=== PATIENT | female | born 2005 | race Two or more races ===

== ENCOUNTER 2024-07-26 09:46 | Emergency (ER) | payer MEDICAID, SELFPAY ==
[2024-07-26 09:59] VITALS: BP 116/81; PULSE 92; RESP 19; TEMP 36.7; O2SAT 98; BMI 25.9
--- NOTE | 2024-07-26 10:01 | XR_ITS ---
Examination: Abdomen sonogram, Limited Date and time of exam: July 26, 2024 1020 hours INDICATIONS: Onset right upper abdominal pain today Technique: Real-time revlees scale transabdominal sonographic images of the upper abdomen obtained. Findings: 15 mm stone in the gallbladder neck 10 mm stone in the fundus Gallbladder wall 0.3 cm Common bile duct enlarged 0.7 cm although no definite stones Pancreatic head 2.3 cm Liver 11.7 cm Normal study Patent IVC IMPRESSION: Cholelithiasis, negative for cholecystitis Abnormal enlargement common bile duct 0.7 cm, consider MRCP follow-up to exclude common bile duct stones
--- NOTE | 2024-07-26 10:02 | EKG_ITS ---
[facility] Test Date: 2024-07-26 Pat Name: DORIS ABERNATHY Department: Room: - Gender: Female Clerk Operator: : [id number] Requested By: Maciel Maldonado Order Number: [id number] Reading MD: Maciel Maldonado Measurements Intervals [place] Rate: 86 P: 53 NV: 108 QRS: 49 QRSD: 87 T: 28 QT: 338 QTc: 404 Interpretive Statements SINUS RHYTHM WITH SHORT NV INTERVAL INDETERMINATE AXIS No previous ECG available for comparison /[id number]/[email or web address]/[id number].pdf
--- NOTE | 2024-07-26 10:02 | PD.EDRME ---
Rapid Medical Screening Exam RME Arrival date/time: 07/26/24 09:46 Chief Complaint: Abdominal Pain Time Seen by Provider: 07/26/24 09:48 Vital signs: Vital Signs Temperature 98.1 F 07/26/24 09:59 Pulse Rate 92 07/26/24 09:59 Respiratory Rate 19 07/26/24 09:59 Blood Pressure 116/81 07/26/24 09:59 Pulse Oximetry (%) 98 07/26/24 09:59 Oxygen Delivery Method Room Air 07/26/24 09:59 RME Narrative: RUQ pain radiating to back with nausea since 0200
[2024-07-26 10:59] LABS: Basophils % (Auto) 0 % (0-2.5); Eosinophils # (Auto) 0.1 Thou/mm3 (0.0-0.5); Eosinophils % (Auto) 1 % (0-10); Hematocrit 40.9 % (36.0-46.0); Hemoglobin 13.5 g/dL (12.0-16.0); Immature Granulocytes % (Auto) 0 % (0-0); Immature Granulocytes Auto 0.01 Thou/mm3 (0.00-0.00); Lymphocytes % (Auto) 22 % (10-50); Mean Corpuscular Hemoglobin 26.6 pg (25.0-35.0); Mean Corpuscular Volume 81 fL (80-100); Monocytes # (Auto) 0.4 Thou/mm3 (0.0-0.8); Monocytes % (Auto) 5 % (0-12); Neutrophils # (Auto) 6.4 Thou/mm3 (1.8-7.7); Neutrophils % (Auto) 71 % (37-80); Nucleated Red Blood Cell % 0 /100 WBC (0); Platelet Count 249 Thou/mm3 (140-440); RDW Standard Deviation 37.9 fL (36.4-46.3); Red Blood Count 5.07 Miln/mm3 (4.00-5.20); White Blood Count 9.1 Thou/mm3 (4.5-11.0)
[2024-07-26] MEDS: KETOROLAC INJ 60 MG/2 ML VIAL 30 MG IM (11:13)
[2024-07-26] MEDS: ONDANSETRON ODT 4 MG TABRAP PO (11:13)
[2024-07-26 11:17] LABS: Alanine Aminotransferase 20 U/L (10-49); Alkaline Phosphatase 112 U/L (46-116); Anion Gap 6 (7-16); Aspartate Amino Transferase 17 U/L (0-34); BUN/Creatinine Ratio 10 Ratio (12-20); Bilirubin,Total 0.4 mg/dL (0.3-1.2); Blood Urea Nitrogen 7 mg/dL (9-23); Calcium 9.4 mg/dL (8.3-10.6); Calcium (Corrected) 9.4 mg/dL (8.5-10.1); Carbon Dioxide 23.5 mMol/L (20.0-31.0); Chloride 106 mMol/L (98-107); Creatinine (Component) 0.7 mg/dL (0.6-1.3); Estimated Creatinine Clearance 113.9 mL/min (>60); Globulin 2.5 gm/dL (2.3-3.5); Glucose 89 mg/dL (74-106); Lipase 35 U/L (12-53); Osmolality,Calculated 267 (275-295); Sodium 135 mMol/L (136-145); Total Protein 7.5 gm/dL (5.7-8.2); Troponin I < 0.002 ng/mL (0.0-0.045); eGFR > 60 See Note
[2024-07-26 11:29] LABS: Collection Type, Urine Clean Catch
[2024-07-26 11:32] LABS: HCG Qualitative,Urine Negative
[2024-07-26 11:33] LABS: Bilirubin,Urine Negative (Negative); Blood,Urine 2+ (Negative); Clarity,Urine Clear (Clear/Hazy); Color,Urine Lt-Yellow (Lt Yel-Yel); Glucose, Urine Negative (Negative); Ketones,Urine Negative (Negative); Leukocyte Esterase,Urine Negative (Negative); Nitrite,Urine Negative (Negative); Protein,Urine Negative (Neg - Trace); RBC,Urine 3 /hpf (0-3); Specific Gravity,Urine 1.024 (1.001-1.035); Squamous Epithelial Cell,Urine 6 /hpf (0-5); Urobilinogen,Urine Negative mg/dL (0.0-1.0); WBC,Urine 1 /hpf (0-5)
--- NOTE | 2024-07-26 12:27 | PD.EDABDPN ---
ED Abdominal Pain RME/HPI General Chief Complaint: Abdominal Pain Stated complaint: right upper ab pain started 2 am today Time seen by provider: 07/26/24 09:48 Arrival date/time: 07/26/24 09:46 RME / HPI RME / HPI narrative: 18-year-old female patient with no significant medical history, came in for evaluation regarding right upper quadrant pain. Onset of symptoms since 2 AM this morning, as sudden onset of right upper quadrant pain, patient woke up with it, she Is crampy, severity moderate. Patient denies any fever denies any vomiting denies any other complaints no medication was taken prior to arrival. Related Data Home Medications ?Medication ?Instructions ?Recorded ?Confirmed ferrous sulfate 325 mg (65 mg 325 mg PO BID 11/22/21 11/22/21 iron) tablet Previous Rx's ?Medication ?Instructions ?Recorded ondansetron HCl 4 mg tablet 4 mg PO QDAY #10 tabs 11/22/21 labetalol 100 mg tablet 400 mg (4 x 100 mg) PO BID 30 days 11/26/21 #240 tabs nifedipine 30 mg tablet,extended 60 mg (2 x 30 mg) PO QDAY 30 days 11/27/21 release 24 hr #60 tabs famotidine 40 mg tablet (Pepcid) 40 mg PO QDAY #30 tabs 05/23/23 dicyclomine 20 mg tablet 20 mg PO TID PRN abdominal pain 07/26/24 #30 tabs Allergies Allergy/AdvReac Type Severity Reaction Status Date / Time No Known Allergies Allergy Verified 07/26/24 09:47 Review of Systems Review of Systems Narrative Review of Systems: Review of system reviewed and within normal limits except mentioned in HPI ED Exam Narrative Physical exam: VITAL SIGNS: Reviewed. GENERAL APPEARANCE: Alert and interactive, follows commands, no acute distress, HEAD AND FACE: Non-traumatic. ENT: PERRL, pink conjunctivitis, eyelid no trauma, Mucous membrane moist. NECK: Supple, nontender, no nuchal rigidity. CHEST: No tenderness, no crepitus, no paradoxical movement, no retractions. LUNGS: Clear, well ventilated, symmetric, no rales, no wheezing, no ronchi, no stridor, good breath sounds bilaterally. HEART: Regular rate, regular rhythm, no murmur, no gallops. ABDOMEN: Soft, positive bowel sounds, nondistended, no guarding, right upper quadrant tenderness, no rebound, no masses, RECTAL: Deferred. GENITAL: Deferred. NEUROLOGICAL: Gross motor function intact sensory function intact, Appropriate for age. MUSCULOSKELETAL: low back nontender, full range of motion. EXTREMITIES: Nontender, full range of motion. SKIN: Color pink, dry, no rash, no lacerations, no abrasions, no contusions. LYMPHATICS: Deferred. Course Quality Measures none Orders Category Date Time Status EKG (ED ONLY) *Do not use* NOW Care 07/26/24 10:02 Completed EKG (ED Only) Stat Exams 07/26/24 10:02 Draft US gall bladder Stat Exams 07/26/24 10:01 Completed CBC Stat Lab 07/26/24 10:42 Completed CMP [Comprehensive Metabolic Panel] Stat Lab 07/26/24 10:42 Completed HCG Qualitative,Urine Stat Lab 07/26/24 11:20 Completed Lipase Stat Lab 07/26/24 10:42 Completed Troponin I Stat Lab 07/26/24 10:42 Completed UA [Urinalysis] Stat Lab 07/26/24 11:20 Completed Ketorolac Inj [Toradol Inj] Med 07/26/24 10:01 Discontinued 30 mg IM X1 ONE Ondansetron Odt [Zofran Odt] Med 07/26/24 10:01 Discontinued 4 mg PO X1 ONE Vital Signs Vital signs: Vital Signs Temperature 98.1 F 07/26/24 09:59 Pulse Rate 92 07/26/24 09:59 Respiratory Rate 19 07/26/24 09:59 Blood Pressure 116/81 07/26/24 09:59 Pulse Oximetry (%) 98 07/26/24 09:59 Oxygen Delivery Method Room Air 07/26/24 09:59 Abdominal Pain MDM MDM Narrative MDM Narrative:: 18-year-old female patient with no significant medical history, came in for evaluation regarding right upper quadrant pain. Onset of symptoms since 2 AM this morning, as sudden onset of right upper quadrant pain, patient woke up with it, she Is crampy, severity moderate. Patient denies any fever denies any vomiting denies any other complaints no medication was taken prior to arrival. Laboratory workup all came back unremarkable. Vitals are normal ultrasound of the gallbladder showed cholelithiasis with no sign of acute cholecystitis. Results discussed with the patient. Patient was advised to follow-up PCP and for referral to general surgeon regarding gallstones. Patient agrees with the plan. Patient data External records reviewed:: None Clinical information provided by:: patient Social determinants that could affect healthcare access:: none Patient has the following chronic illnesses:: None How is presenting disease/condition affected by chronic disease/condition?: no chronic disease Evaluation data The following diagnostics were reviewed and interpreted by me:: lab results and radiology exam(s) Lab and/or radiology exams considered but not ordered:: None Interpretation Summary: Laboratory workup all came back unremarkable. Vitals are normal ultrasound of the gallbladder showed cholelithiasis with no sign of acute cholecystitis Medications / Prescriptions Medications or Prescriptions considered but not ordered:: None Medication administrations:: Medication Administration History Discontinued Medications Ketorolac Tromethamine (Ketorolac Inj 60 Mg/2 Ml Vial) 30 mg IM X1 ONE Stop: 07/26/24 10:02 Last Admin: 07/26/24 11:13 Dose: 30 mg Documented By: ED Ondansetron HCl (Ondansetron Odt 4 Mg Tabrap) 4 mg PO X1 ONE; Protocol Stop: 07/26/24 10:02 Last Admin: 07/26/24 11:13 Dose: 4 mg Documented By: ED Toradol IM and Zofran Consultations Consultation(s) initiated? (list below): No Diagnosis Differential diagnosis abdominal pain: abdominal pain, pancreatitis and other (Cholelithiasis) Most likely diagnosis given after review of the tests above:: Cholelithiasis Admission Indicated Admission indicated?: not indicated Explain why admission is indicated or not indicated:: Stable for discharge Admission Request Was there a request for admission?: No Disposition Plan Disposition Plan: Discharge Discharge Attestation Discharge Attestation: The patient was given an opportunity to ask questions and understood the discharge instructions. Discharge instructions specifically effects, indications for sooner follow up or return to the emergency department, and the expected course of current diagnosis. Patient condition: Stable Discharge Plan Plan Patient Disposition: HOME (Self Care) Disposition Comment: stable Prescriptions/Referrals Prescriptions/Med Rec: New dicyclomine 20 mg tablet 20 mg PO TID PRN (Reason: abdominal pain) Qty: 30 0RF No Action ferrous sulfate 325 mg (65 mg iron) tablet 325 mg PO BID Patient Comments: TAKE 1 TABLET BY MOUTH TWICE A DAY ondansetron HCl 4 mg tablet 4 mg PO QDAY Qty: 10 0RF labetalol 100 mg Tablet 400 mg PO BID 30 Days Qty: 240 1RF nifedipine 30 mg Tablet Extended Release 24 Hr 60 mg PO QDAY 30 Days Qty: 60 1RF famotidine [Pepcid] 40 mg tablet 40 mg PO QDAY Qty: 30 0RF Referrals: Alan Waldron MD [Primary Care Provider] - In 1 week Problem List Clinical Impression: Cholelithiasis Patient/Caregiver Discharge Instructions Discharge Activity: activity as tolerated Education Materials: Treating Gallstones Additional Instructions: Thank you for the opportunity for serving you today. You are stable for discharged . You are advised to: Follow-up with your PCP in 1 to 2 days and as per referral to general surgeon Return to ED for worsening of symptoms Increase oral fluids Take medication as prescribed Please avoid eating fatty, greasy, meat, fried foods. Print Language: Nepali Stand Alone Forms: Duyen Award Info., Patient Portal Info Letter PA/TRU Supervising Physician PA/MARRIAGE COUNSELOR Supervising Physician: MD Bryan
== END 2024-07-26 13:24 | disposition home or self-care (01) ==
PROVIDERS: Physician Assistant; Emergency Provider Emergency Medicine; PCP Family Medicine
DX: K80.20 Calculus of gallbladder without cholecystitis without obstruction (principal); R94.31 Abnormal electrocardiogram [ECG] [EKG]
CPT/HCPCS: 36415; 76705; 80053; 81001; 81025; 83690; 84484; 85025; 93005; 96372; 99284; J1885; Q0162

== ENCOUNTER 2024-09-05 09:00 | Day surgery (SDC) | payer MEDICAID, SELFPAY ==
[2024-09-04 10:24] VITALS: BMI 27.3
[2024-09-04 11:11] LABS: Basophils % (Auto) 0 % (0-2.5); Eosinophils # (Auto) 0.1 Thou/mm3 (0.0-0.5); Eosinophils % (Auto) 1 % (0-10); Hematocrit 39.8 % (36.0-46.0); Hemoglobin 13.2 g/dL (12.0-16.0); Immature Granulocytes % (Auto) 0 % (0-0); Immature Granulocytes Auto 0.01 Thou/mm3 (0.00-0.00); Lymphocytes # (Auto) 2.8 Thou/mm3 (1.0-5.0); Lymphocytes % (Auto) 37 % (10-50); Mean Corpuscular HGB Conc 33.2 g/dl (31.0-37.0); Mean Corpuscular Hemoglobin 26.6 pg (25.0-35.0); Mean Corpuscular Volume 80 fL (80-100); Monocytes # (Auto) 0.4 Thou/mm3 (0.0-0.8); Monocytes % (Auto) 5 % (0-12); Neutrophils # (Auto) 4.3 Thou/mm3 (1.8-7.7); Neutrophils % (Auto) 56 % (37-80); Nucleated Red Blood Cell % 0 /100 WBC (0); Platelet Count 266 Thou/mm3 (140-440); Red Blood Count 4.96 Miln/mm3 (4.00-5.20); White Blood Count 7.7 Thou/mm3 (4.5-11.0)
[2024-09-04 11:18] LABS: Anion Gap 9 (7-16); BUN/Creatinine Ratio 13 Ratio (12-20); Blood Urea Nitrogen 9 mg/dL (9-23); Carbon Dioxide 26.5 mMol/L (20.0-31.0); Chloride 105 mMol/L (98-107); Creatinine (Component) 0.7 mg/dL (0.6-1.3); Estimated Creatinine Clearance 107.6 mL/min (>60); Glucose 93 mg/dL (74-106); Potassium 4.1 mMol/L (3.4-5.1); Sodium 140 mMol/L (136-145); eGFR > 60 See Note
[2024-09-04 11:19] LABS: Alanine Aminotransferase 16 U/L (10-49); Albumin, Serum 4.9 gm/dL (3.5-5.0); Albumin/Globulin Ratio 1.8 (1.2-2.2); Alkaline Phosphatase 111 U/L (46-116); Aspartate Amino Transferase 23 U/L (0-34); Bilirubin,Total 0.6 mg/dL (0.3-1.2); Calcium 9.5 mg/dL (8.3-10.6); Calcium (Corrected) 9.5 mg/dL (8.5-10.1); Globulin 2.7 gm/dL (2.3-3.5); Osmolality,Calculated 278 (275-295); Total Protein 7.6 gm/dL (5.7-8.2)
[2024-09-04 12:06] LABS: HCG,Qualitative Serum Negative
[2024-09-05] VITALS (9 sets, daily range): BP systolic 102–135; BP diastolic 60–92; PULSE 77–98; RESP 12–23; TEMP 36.1–36.4; O2SAT 95–99; BMI 27.5
[2024-09-05] MEDS: RINGERS LACTATED 1000 ML 1,000 ML 20 ML IV (09:52)
--- NOTE | 2024-09-05 10:54 | ESOP_ITS ---
Date of Procedure 09/05/24 Pre Op Diagnosis Symptomatic cholelithiasis Post Op Diagnosis Cholelithiasis with cholecystitis Procedure Laparoscopic cholecystectomy Findings Moderately distended gallbladder with gallstones and chronic cholecystitis Procedure Description Patient was brought into the operating room in supine position. After adm inistration of general endotracheal anesthesia abdomen was prepped and draped in standard surgical manner. A Veress needle was inserted through the umbilicus and pneumoperitoneum was obtained up to 15 mmHg. The Veress needle was then removed, a 5 mm infraumbilical incision was made and the 5mm trocar was inserted. Laparoscopic camera was placed. Under direct visualization a laparoscopic camera a 10 mm trocar was placed in subxiphoid and two 5 mm trocars placed in right upper quadrant. The gallbladder was identified and was noted to be moderately distended with gallstones and chronic cholecystitis. It was retracted cephalad and laterally. Dissection started near the infundibulum of gallbladder where cystic duct and gallbladder junction clearly identified. The cystic duct was circumferentially dissected off the peritoneum and surrounding inflammatory tissue. The critical view of safety was clearly demonstrated. Cystic duct was then divided between 2 endoclips proximally and one distally. The cystic artery was similarly dissected and divided. The gallbladder was then from the liver bed using electrocautery. The gallbladder was then placed inside an Endo Catch and removed from the abdomen utilizing subxiphoid trocar site. The area was copiously and thoroughly washed and irrigated, all the fluid was suctioned and the suction fluid returned clear. Hemostasis achieved using electrocautery. Endoclips noted be in place and intact without any bleeding or any leakage. Hemostasis was adequate and satisfactory. The subxiphoid trocar sites fascial defect was closed with 0 Vicryl using Endo Closure device. Instruments and trocars removed, pneumoperitoneum was evacuated and the incisions closed with 4-0 Monocryl in subcuticular fashion. Instrument needle and sponge counts were all reported to be correct X2. Patient tolerated the procedure well, was extubated, breathing spontaneously and without difficulty and was transferred to postanesthesia care in stable condition. Anesthesia GETA and local Pathology / specimen Other (Gallbladder and contents) Estimated Blood Loss 10 Condition Stable Disposition PACU Surgeon Monroe Hightower MD Surgical Staff Operation Date: 09/05/24 11:15 Case Staff Anesthesiologist: Wally Rock RNrental clerk: Rachel Turcios
--- NOTE | 2024-09-05 10:55 | SUR.PHASEI ---
pt received from OR in recovery bay 7. pt asleep but responds to voice, breathing unlabored on 8l oxymask, nasal airway in place. v/s stable. pt dressing to abd x4 dermabond cdi. report received from Princess GARZA and Dr. Rock.
[2024-09-05] MEDS: fentaNYL CIT INJ 50 mCg/ML AMP 2ML IV (11:16)
--- NOTE | 2024-09-05 11:26 | SUR.PHASEII ---
pt able to tolerate oral fluids without difficulty swallowing or nausea/vomiting.
--- NOTE | 2024-09-05 12:30 | SUR.PHASEII ---
pt awake and alert, breathing unlabored on room air. v/s stable. pt dressing to abd dermabond x4 cdi. pt able to ambulate to wheelchair with steady gait. d/c instructions given with mother over the phone (child presence) using sonography technician Desirae Bello and with pt in room, all questions answered. pt d/c via wheelchair with all belongings.
== END 2024-09-05 12:30 | disposition home or self-care (01) ==
PROVIDERS: Referring Provider Surgery; Visit Provider Surgery
PROC: 0FT44ZZ Resection of Gallbladder, Percutaneous Endoscopic Approach (ICD-10-PCS; CPT 47562; principal; 2024-09-05 11:00)
DX: K80.10 Calculus of gallbladder with chronic cholecystitis without obstruction (principal)
CPT/HCPCS: 47562; 36415; 80053; 84703; 85025; A4217; A4649; J0131; J0694; J1100; J2405; J2704; J3010; J3490; J7120